=== PATIENT | female | born 1995 | race Asian ===

== ENCOUNTER 2024-02-11 09:30 | Inpatient (IN) ==
--- NOTE | 2024-02-11 10:15 | History & Physical Report ---
Date of Service February 11, 2024 Assessment & Plan (1) with 39 completed weeks gestation: (2) Vaginal bleeding: Plan Some evidence of bleeding but nothing active at present. Appears to be oligo on my bedside ultrasound. Do not see fluid with sse. Will get bpp and codi. efm a bit flat, but has had some spontanesous accels noted. Very rare contraction. If oligo, would plan iol. she notes oligo with induction with her last . Minimally plan to monitor for a couple of hours. Explained the situation to the patient and partner who express understanding. History of Present Illness Chief Complaint: bleeding Primary Care Provider: Lydia Mahajan MD Patient is a 28yowf with iup at 39 6/7 weeks who presents to labor and delivery with bleeding. she got up to the bathroom was feeling pressure and cramping and had a large gush of blood into the toilet. Hard to quantify but she notes it was alot. Having some intermittent cramping/contractions. NOtes minimal bleeding since. A small amount of dark rust colored blood on the pad when she arrived. she noted movement this am but decreased recently. and Delivery Plans covid vaccinated--3 doses IOL Post-dates 02/19 OB Labs: Blood Type O Positive 07/21/23 Antibody Screen NEGATIVE 07/21/23 Hemoglobin 10.3 g/dl (12.0-16.0) L 11/24/23 Hematocrit 30.2 % (37.0-47.0) L 11/24/23 Mean Corpuscular Volume 91.9 fL (80.0-100.0) 07/21/23 Platelet Count 378 K/uL (130-400) 07/21/23 Rubella IgG Antibody Immune (Immune) 07/21/23 Rapid Plasma Reagin Nonreactive (Nonreactive) 07/21/23 Hepatitis B Surface Antigen. NON-REACTIVE (NON-REACTIVE) 07/21/23 Hepatitis C Antibody (EIA) NON-REACTIVE (NON-REACTIVE) 07/21/23 HIV (1&2) Ag and Ab Confirmation NON-REACTIVE (NON-REACTIVE) 07/21/23 Glucose 1 Hour 50 gm Load 150 mg/dl (70-130) H 09/01/23 OB Optional Labs: Chlamydia trachomatis RNA Not Detected (NotDetected) 07/21/23 Neisseria gonorrhoeae RNA Not Detected (NotDetected) 07/21/23 Labs Reviewed: cfdna-low risk--mln gbs neg Allergies Allergy/AdvReac Type Severity Reaction Status Date / Time No Known Allergies Allergy Unverified 02/09/24 12:56 Home Medications Medication Instructions Recorded Confirmed Type vits no.124-ferrous fum 1 tab PO DAILY 02/11/24 02/11/24 History 27 mg iron-folic acid 800 mcg tablet ( Vitamin) Patient History Medical History Oligohydramnios Patient reports Oligo with last . History of chicken pox Seasonal allergies Surgical History No history of previous surgery Family History Father Diabetes Denies family history of Ovarian cancer Breast cancer Colorectal cancer Social History Smoking Status: Never smoker Do You Dip or Chew Tobacco: No; Hx Alcohol Use: No Hx Substance Use: No Preferred Language: Moldovan Communication Ability: Effective Hearing Screener Required: No Beliefs That Will Affect Care: None marital status: Single marital status details: Jennifer Zheng (30) [phone] Current Living Situation: Family and Significant Other Current Living Situation Comment: lives with F[address], children, no pets current occupational status: employed current occupation: [employer] Other Information That Helps Us Care for You: No Feels Safe at Home: Yes Safety Concerns: Feels Safe At This Time Assistive Devices: None OB History Past Pregnancies Del. Date GA wks Lbr Lgth wt Sex Type del Anes Place Del Prov ? Comment 10/06/17 41 10 6-15 F Epid ural Other [facility] IOL post dates 05/05/19 39 10 6-14 F Epid ural Other [facility] IOL oligohydramnios [facility] History noncontributory Physical Exam Constitutional: WD/WN, vitals as above Gastrointestinal (Abdomen): soft, gravid, nt Psychiatric: A+Ox3, euthymic affect Genitourinary: sse--small amount of dark blood in the vault, cx vis 1cm, no active bleeding noted sve--1/l/h toco--rare, occasional contractions efm--140s with min to mod variability, small accels, no decels bsus--cephalic, appears with minimal fluid noted. Results & Data Vital Signs (Past 12 Hours) Vital Signs Temp Pulse Resp BP 02/11/24 09:45 36.8 C 88 20 122/75 02/11/24 09:40 88 122/75 Coding Level of Care Code None Diagnoses with 39 completed weeks gestation Z3A.39 Vaginal bleeding N93.9
[2024-02-11] MEDS ORDERED: LIDOCAINE 1% LOCAL 20 ML VIAL INFIL PRN (11:44)
[2024-02-11] MEDS ORDERED: OXYTOCIN 30 UNITS/NSS 30 UNITS/500 ML BAG IV PRN (11:44)
--- NOTE | 2024-02-11 11:48 | Communication Note ---
Date of Service: February 11, 2024 Bpp is 4/8--gross movement and fluid (codi 4, dvp 2.9), no tone and only about 5 secs of bleeding. Given this recommend iol. Would plan slow induction with pitocin. Explained the situation to the patient and she agrees to proceed. Discussed the r/b/se.
[2024-02-11 12:11] LABS: Hematocrit (blood only) 29.6 % (37.0-47.0); Hemoglobin 9.9 g/dl (12.0-16.0); Mean Corpuscular Hemoglobin 26.4 pg (25.0-34.0); Mean Corpuscular Hgb Conc 33.4 g/dL (32.0-36.0); Mean Corpuscular Volume 78.9 fL (80.0-100.0); Mean Platelet Volume 9.3 fL (9.4-12.4); Platelet Count 351 K/uL (130-400); RDW Coefficient of Variation 15.1 % (11.5-14.5); RDW Standard Deviation 43.8 fL (36.4-46.3); Red Blood Count 3.75 M/uL (4.20-5.40); White Blood Count 11.59 K/ul (4.8-10.8)
--- NOTE | 2024-02-11 12:20 | Ultrasound Report ---
US OB BPP wo NST single HISTORY: 28 years-old Female term, bleeding, ? oligo acute vaginal bleeding with COMPARISON: 09/29/2023 TECHNIQUE: Biophysical profile sonographic images were obtained FINDINGS: Single living intrauterine gestation with heart rate of 139 bpm in cephalic positioning. JESSICA is 4 cm. Breathing was noted for a interval proximally 5 seconds. Hazardous Materials Waste Technician reports not on, flexion o r extension identified. Biophysical profile is overall recorded at 4-8. The tread booker reports that she made the steam drier tender hardware of these findings at the time of dictation. This study was also ma de as a call report. The imaged placenta appears unremarkable. IMPRESSION: 1. Single living intrauterine gestation. 2. Biophysical profile of 4/8. 3. JESSICA of 4.0 cm. ACT 112: Negative or not required by law. The above report was generated using voice recognition software. It may contain grammatical, syntax o r spelling errors. Electronically signed by: Colt Hernández M.D. 02/11/2024 12:18 PM
[2024-02-11] MEDS: LACTATED RINGER'S 1,000 ML IV PRN (12:24)
[2024-02-11] MEDS: OXYTOCIN 30 UNITS/NSS 30 UNITS/500 ML BAG IV PRN (12:25)
[2024-02-11] MEDS ORDERED: SODIUM CHLORIDE 0.9% 250 ML IV PRN (12:53)
--- NOTE | 2024-02-11 19:25 | Anesthesiology Consultation ---
Date of Service February 11, 2024 Assessment & Plan Chart Review Chart Review: Patient NOT seen in Pre Admission Testing and Acceptable Risk for Labor Epidural Consults Requested none ASA ASA2 Proposed Anesthesia Anesthesia Type: Labor Epidural Risk / Benefits Reviewed With: PT / POA / Parent / Guardian, Accepts Plan and Informed Consent Obtained History Height/Weight Height: 5 ft 4 in Weight: 70.307 kg Allergies Allergy/AdvReac Type Severity Reaction Status Date / Time No Known Allergies Allergy Unverified 02/09/24 12:56 Medications Home Medications Medication Instructions Recorded Confirmed Last Taken vits no.124-ferrous fum 1 tab PO DAILY 02/11/24 02/11/24 02/10/24 27 mg iron-folic acid 800 mcg tablet ( Vitamin) Active Medications Generic Name Dose Route Start Last Admin Trade Name Freq PRN Reason Stop Dose Admin Lactated Ringer's 1,000 mls @ 125 mls/hr 02/11/24 11:44 02/11/24 18:52 Lr IV 02/13/24 11:43 999 mls/hr .Q8H PRN Administration L&D Protocol Protocol Oxytocin 30 units in 500 mls @ 8 mls/hr 02/11/24 11:44 02/11/24 17:35 Pitocin 30 Units/Nss IV 02/13/24 11:43 0.48 units/hr .Q24H PRN 8 mls/hr Labor Induction/Augmentation Titration Protocol 0.48 UNITS/HR NPO Date Last Intake of Fluids: 02/11/24 Time Last Intake of Fluids: 18:00 Date Last Intake of Solids: 02/10/24 Time Last Intake of Solids: 20:00 Past Medical History Medical History Oligohydramnios Patient reports Oligo with last . History of chicken pox Seasonal allergies Exercise / Class Metabolic Activity II 4-5 Yardwork/Stairs/Walk up hill Past Family History Family History Father Diabetes Denies family history of Ovarian cancer Breast cancer Colorectal cancer Past Surgical History Surgical History No history of previous surgery Past Anesthesia History No Hx of Anesthesia Complications and No Family Hx of Anesthesia Complications History of PONV No Hx of PONV and No Hx of Motion Sickness Social History Smoking Status: Never smoker Do You Dip or Chew Tobacco: No Hx Alcohol Use: No Hx Substance Use: No Review of Systems ROS Unobtainable: All systems reviewed & are unremarkable except as noted in HPI & below Physical Exam Vital Signs Last Vital Signs Temp 36.9 C 02/11/24 19:03 Pulse 104 H 02/11/24 19:20 Resp 18 02/11/24 19:03 BP 124/70 02/11/24 19:03 Pulse Ox 98 02/11/24 19:20 ENMT Mouth: no TMJ abnormality Thyromental Distance: > or= 3.5 Finger Breadths Mallampati Class: II Neck normal visual inspection and trachea midline; neck extension not limited Respiratory normal respiratory effort Auscultation: lungs clear to auscultation bilaterally Cardiovascular Rate/Rhythm: regular rate and regular rhythm Heart Sounds: no murmur Musculoskeletal Spine: normal cervical ROM Extremities: full ROM of extremities Neurologic moves all extremities Psychiatric Orientation: alert and oriented x 3 Testing Laboratory Results 02/11/24 11:51 Blood Type O Positive 02/11/24 11:51 Antibody Screen NEGATIVE 02/11/24 11:51
[2024-02-11] MEDS: BUPIVACAINE 0.25% PF 30 ML VIAL ONE (19:44)
[2024-02-11] MEDS: SODIUM CHLORIDE 0.9% PF INJ 10 ML VIAL ONE (19:44)
[2024-02-11] MEDS: LIDOCAINE 2%/EPINEPHRINE 1:200,000 20 ML PF ONE (19:44)
[2024-02-11] MEDS: fentANYL 2 MCG/ML BUPIVacaine 0.125%-NSS 100ML BAG ONE (19:45)
[2024-02-11] MEDS ORDERED: ePHEDrine sulfate 50 MG/ML AMP IV PRN (19:55)
[2024-02-11] MEDS ORDERED: ROPIVACAINE 0.5% PF 5 MG/ML 20 ML VIAL EPI PRN (19:55)
[2024-02-11] MEDS ORDERED: LIDOCAINE 2% MPF LOCAL 5 ML VIAL EPI PRN (19:55)
[2024-02-11] MEDS ORDERED: fentANYL 2 MCG/ML BUPIVacaine 0.125%-NSS 100ML BAG EPI PRN (19:55)
[2024-02-11] MEDS ORDERED: BUPIVACAINE 0.25% PF 30 ML VIAL EPI STA (19:55)
[2024-02-11] MEDS ORDERED: NALOXONE HCL 1 MG in SODIUM CHLORIDE 0.9% 1,000 ML IV PRN (19:55)
[2024-02-11] MEDS ORDERED: SODIUM CHLORIDE 0.9% PF INJ 10 ML VIAL EPI PRN (19:55)
[2024-02-11] MEDS ORDERED: NALOXONE HCL 0.4 MG/1 ML VIAL/CARP IV PRN (19:55)
[2024-02-11] MEDS ORDERED: LIDOCAINE 2%/EPINEPHRINE 1:200,000 20 ML PF EPI STA (19:55)
[2024-02-11] MEDS ORDERED: NALBUPHINE HCL 5 MG in SYRINGE 0 ML IV PRN (19:55)
[2024-02-11] MEDS ORDERED: fentaNYL citrate PF 100 MCG/2 ML VIAL EPI STA (19:55)
[2024-02-11] MEDS ORDERED: fentaNYL citrate PF 100 MCG/2 ML VIAL EPI PRN (19:55)
[2024-02-11] MEDS ORDERED: SODIUM CHLORIDE 0.9% PF INJ 10 ML VIAL EPI STA (19:55)
[2024-02-11] MEDS ORDERED: diphenhydrAMINE 50 MG/ML VIAL IV PRN (19:55)
[2024-02-11] MEDS ORDERED: BUPIVACAINE 0.25% PF 30 ML VIAL EPI PRN (19:55)
--- NOTE | 2024-02-11 20:15 | Labor Progress Brief Note ---
Date of Service February 11, 2024 Subjective comfortable with epidural, felt a gush Assessment & Plan (1) with 39 completed weeks gestation: Plan making change, srom, clear. overall reassuring strip with occasional category two. anticipate . Admission and Anticipated Discharge Date Admission Date: February 11, 2024 Physical Exam Physical Exam: cx--75/-2 srom--clear, minimal blood noted toco--q2-4min, pit at 8 efm--130s wtih mod variability, accels present, rare min variability times, occasional small variable Results & Data Vital Signs (Past 12 Hours) Vital Signs Temp Pulse Resp BP Pulse Ox 02/11/24 20:10 101 H 96 02/11/24 20:09 105 H 115/60 02/11/24 20:06 108 H 109/58 L 02/11/24 20:05 111 H 96 02/11/24 20:03 114 H 18 108/56 L 02/11/24 20:00 96 02/11/24 20:00 110 H 02/11/24 20:00 110 H 110/57 L 02/11/24 19:57 108 H 18 113/56 L 02/11/24 19:55 111 H 96 02/11/24 19:51 109 H 18 99/62 L 02/11/24 19:50 114 H 96 02/11/24 19:48 112 H 18 93/63 L 02/11/24 19:45 18 02/11/24 19:45 18 02/11/24 19:45 96 02/11/24 19:45 109 H 02/11/24 19:45 111 H 112/57 L 02/11/24 19:42 100 H 137/82 02/11/24 19:40 98 02/11/24 19:40 100 H 02/11/24 19:40 104 H 92 02/11/24 19:35 111 H 97 02/11/24 19:32 125 H 92 02/11/24 19:30 122 H 97 02/11/24 19:25 111 H 97 02/11/24 19:20 104 H 98 02/11/24 19:15 108 H 96 02/11/24 19:10 98 H 97 02/11/24 19:05 109 H 98 02/11/24 19:03 36.9 C 104 H 18 124/70 02/11/24 18:11 106 H 111/58 L 02/11/24 17:32 96 H 111/62 02/11/24 16:52 102 H 116/62 02/11/24 16:07 104 H 20 106/59 L 02/11/24 14:54 37.0 C 99 H 20 104/57 L 02/11/24 13:19 92 H 123/58 L 02/11/24 12:27 96 H 18 113/64 02/11/24 11:14 114 H 18 133/80 02/11/24 09:45 36.8 C 88 20 122/75 02/11/24 09:40 88 122/75 Coding Level of Care Code None Diagnoses with 39 completed weeks gestation Z3A.39
[2024-02-11] MEDS: fentaNYL citrate PF 100 MCG/2 ML VIAL ONE (20:23)
[2024-02-11] MEDS: ePHEDrine sulfate 50 MG/ML AMP ONE (22:06)
--- NOTE | 2024-02-12 00:29 | Delivery Summary ---
Vaginal Delivery Summary Date of Service February 12, 2024 Vaginal Delivery Summary and 2nd Degree LAC Pre-operative Diagnosis: at 40 weeks vaginal bleeding oligohydramnios bpp 4/8 Post-operative Diagnosis: same Procedure: pitocin induction epidural srom manual extraction of the placenta second degree laceration and repair QBL: 157cc Anesthesia: epidural Procedure: The patient presented to labor and delivery after a large gush of blood. Not actively bleeding on admission. Bedside us suspicious for oligohydramnios. BPP 4/8. Decision made for induction which was started with pitocin. Progressed and got epidural at 4cm. she continued to progress to c/c/+1. The patient pushed for x3 to deliver a viable male infant in he position. The nose and mouth were bulb suctioned on the perineum and the rest of the was then delivered without difficulty. The baby was vigorous. The nose and mouth were again bulb suctioned and the infant was placed in the maternal abdomen for drying and attention. Cord was clamped and cut at one minute of life. Cord blood and segment obtained. Placenta delivered by manual extractions as it was not easily, intact with a three vessel cord. Cervix/sulci/rectum were intact. A second degree perineal laceration was repaired in the normal standard fashion. Hemostasis obtained with dilute pitocin and fundal massage. Apgars were 8/9. Mother and baby doing well at the end of the delivery. [facility] [place] Charge Delivery Type Details: and 2nd Degree LAC
[2024-02-12] MEDS ORDERED: bisacodyL 10 MG SUPP PR PRN (00:30)
[2024-02-12] MEDS ORDERED: OXYTOCIN 30 UNITS/NSS 30 UNITS/500 ML BAG IV PRN (00:30)
[2024-02-12] MEDS ORDERED: DIPHTHER/TETAN/PERTUS Vaccine (Tdap, Adol/Adult) 0.5mL IM ONE (00:30)
[2024-02-12] MEDS ORDERED: ACETAMINOPHEN 325 MG TAB PO PRN (00:30)
[2024-02-12] MEDS ORDERED: oxyCODONE/ACETAMINOPHEN 5mg/325mg TAB PO PRN (00:30)
[2024-02-12] MEDS ORDERED: HYDROCORTISONE ACETATE 25 MG SUPP PR PRN (00:30)
[2024-02-12] MEDS: ceFAZolin 1000MG 1,000 MG/7.5 ML SYR IV ONE (01:52)
[2024-02-12] MEDS: BENZOCAINE 20% SPRY 85 APPLN/85 GM CAN EXT PRN (02:27)
[2024-02-12 06:17] LABS: Hematocrit (blood only) 27.7 % (37.0-47.0); Hemoglobin 9.1 g/dl (12.0-16.0)
[2024-02-12] MEDS: IBUPROFEN 600 MG TAB PO PRN (06:27)
--- NOTE | 2024-02-12 07:18 | Obstetrical Progress Note ---
Date of Service <Henry Warren DO - Last Filed: 02/12/24 07:18> February 12, 2024 Assessment & Plan <Henry Warren DO - Last Filed: 02/12/24 07:18> (1) Encounter for assessment: Plan 28 y/o PPD#0 Eating well, voiding well, ambulating well Vitals reviewed, significant for mild tachycardia (HR max 111) but otherwise WNL Pain well controlled with Motrin Routine post care - OOB, ambulation, diet progression as tolerated Will have 6 week follow up with Dr. Kong <Valeria Kong MD, FACOG - Last Filed: 02/12/24 07:27> (1) Encounter for assessment: Subjective <Henry Warren DO - Last Filed: 02/12/24 07:18> Ambulation: ambulating normally Voiding: no voiding problems Passing Gas:: Yes Diet Tolerance:: regular diet Lochia:: Moderate Feeding Type:: bottle feeding Pain well controlled with Motrin Review of Systems -Denies fever or chills -Denies dyspnea, chest pain, or palpitations -Denies dysuria -Denies headache or changes in vision Physical Exam <Henry Warren DO - Last Filed: 02/12/24 07:18> General: Alert and oriented. No acute distress Cardiac: Regular rate and rhythm, no murmurs appreciated Respiratory: Lungs clear to auscultation bilaterally, No increased work of breathing Abdominal: Soft, non-tender, non-distended. Bowel sounds present. Uterus: Uterine fundus firm, palpable below umbilicus Extremities: No lower extremity edema, calves non-tender bilaterally Results & Data <Henry Warren DO - Last Filed: 02/12/24 07:18> Vital Signs (Past 12 Hours) Vital Signs Temp Pulse Pulse Resp BP BP Pulse Ox 02/12/24 03:32 36.7 C 102 H 20 123/78 96 02/12/24 02:24 16 02/12/24 02:24 105 H 125/63 02/12/24 02:09 111 H 122/58 L 02/12/24 01:54 16 02/12/24 01:54 98 H 120/62 02/12/24 01:39 103 H 122/72 02/12/24 01:24 16 02/12/24 01:24 111 H 126/75 02/12/24 01:09 16 02/12/24 01:09 107 H 116/59 L 02/12/24 00:59 102 H 129/56 L 02/12/24 00:56 18 02/12/24 00:40 18 02/12/24 00:40 104 H 117/72 02/12/24 00:24 115 H 18 146/68 H 02/12/24 00:20 109 H 96 02/12/24 00:15 109 H 97 02/12/24 00:13 121 H 135/63 02/12/24 00:12 122 H 235/138 H 02/12/24 00:10 124 H 97 02/12/24 00:09 122 H 93 02/12/24 00:05 132 H 96 02/12/24 00:02 157 H 92 02/12/24 00:00 139 H 97 02/11/24 23:55 124 H 98 02/11/24 23:50 103 H 97 02/11/24 23:45 116 H 96 02/11/24 23:42 18 02/11/24 23:42 118 H 18 127/75 02/11/24 23:40 121 H 97 02/11/24 23:35 115 H 97 02/11/24 23:30 105 H 97 02/11/24 23:26 106 H 113/65 02/11/24 23:25 100 H 96 02/11/24 23:20 104 H 97 02/11/24 23:15 117 H 97 02/11/24 23:11 115 H 118/65 02/11/24 23:10 114 H 96 02/11/24 23:05 112 H 96 02/11/24 23:00 107 H 96 02/11/24 22:57 110 H 117/63 02/11/24 22:55 109 H 96 02/11/24 22:50 106 H 96 02/11/24 22:45 103 H 95 02/11/24 22:43 109 H 94 02/11/24 22:41 105 H 120/66 02/11/24 22:40 98 H 96 02/11/24 22:35 108 H 95 02/11/24 22:30 112 H 96 02/11/24 22:28 114 H 92 02/11/24 22:26 111 H 117/69 02/11/24 22:25 114 H 96 02/11/24 22:20 103 H 96 02/11/24 22:15 104 H 96 02/11/24 22:12 104 H 120/71 02/11/24 22:10 101 H 97 02/11/24 22:07 18 02/11/24 22:07 36.9 C 18 02/11/24 22:05 111 H 95 02/11/24 22:00 107 H 95 02/11/24 21:56 104 H 115/64 02/11/24 21:55 105 H 95 02/11/24 21:50 107 H 97 02/11/24 21:45 107 H 96 02/11/24 21:42 109 H 118/63 02/11/24 21:40 107 H 95 02/11/24 21:35 114 H 97 02/11/24 21:30 109 H 96 02/11/24 21:27 110 H 117/70 02/11/24 21:25 109 H 97 02/11/24 21:20 114 H 96 02/11/24 21:15 114 H 96 02/11/24 21:11 109 H 103/58 L 02/11/24 21:10 109 H 95 02/11/24 21:05 112 H 97 02/11/24 21:00 36.9 C 117 H 18 95 02/11/24 20:56 115 H 100/55 L 02/11/24 20:55 110 H 96 02/11/24 20:50 114 H 96 02/11/24 20:45 114 H 96 02/11/24 20:41 108 H 16 106/65 02/11/24 20:40 103 H 96 02/11/24 20:35 107 H 96 02/11/24 20:30 112 H 97 02/11/24 20:26 115 H 108/67 02/11/24 20:25 110 H 96 02/11/24 20:20 109 H 97 02/11/24 20:15 106 H 97 02/11/24 20:11 103 H 110/67 02/11/24 20:10 101 H 96 02/11/24 20:09 105 H 115/60 02/11/24 20:06 108 H 109/58 L 02/11/24 20:05 111 H 96 02/11/24 20:03 114 H 18 108/56 L 02/11/24 20:00 96 02/11/24 20:00 110 H 02/11/24 20:00 110 H 110/57 L 02/11/24 19:57 108 H 18 113/56 L 02/11/24 19:55 111 H 96 02/11/24 19:51 109 H 18 99/62 L 02/11/24 19:50 114 H 96 02/11/24 19:48 112 H 18 93/63 L 02/11/24 19:45 18 02/11/24 19:45 18 02/11/24 19:45 96 02/11/24 19:45 109 H 02/11/24 19:45 111 H 112/57 L 02/11/24 19:42 100 H 137/82 02/11/24 19:40 98 02/11/24 19:40 100 H 02/11/24 19:40 104 H 92 02/11/24 19:35 111 H 97 02/11/24 19:32 125 H 92 02/11/24 19:30 122 H 97 02/11/24 19:25 111 H 97 02/11/24 19:20 104 H 98 02/11/24 19:15 108 H 96 O2 Del Method 02/12/24 03:32 Room Air 02/12/24 02:24 02/12/24 02:24 02/12/24 02:09 02/12/24 01:54 02/12/24 01:54 02/12/24 01:39 02/12/24 01:24 02/12/24 01:24 02/12/24 01:09 02/12/24 01:09 02/12/24 00:59 02/12/24 00:56 02/12/24 00:40 02/12/24 00:40 02/12/24 00:24 02/12/24 00:20 02/12/24 00:15 02/12/24 00:13 02/12/24 00:12 02/12/24 00:10 02/12/24 00:09 02/12/24 00:05 02/12/24 00:02 02/12/24 00:00 02/11/24 23:55 02/11/24 23:50 02/11/24 23:45 02/11/24 23:42 02/11/24 23:42 02/11/24 23:40 02/11/24 23:35 02/11/24 23:30 02/11/24 23:26 02/11/24 23:25 02/11/24 23:20 02/11/24 23:15 02/11/24 23:11 02/11/24 23:10 02/11/24 23:05 02/11/24 23:00 02/11/24 22:57 02/11/24 22:55 02/11/24 22:50 02/11/24 22:45 02/11/24 22:43 02/11/24 22:41 02/11/24 22:40 02/11/24 22:35 02/11/24 22:30 02/11/24 22:28 02/11/24 22:26 02/11/24 22:25 02/11/24 22:20 02/11/24 22:15 02/11/24 22:12 02/11/24 22:10 02/11/24 22:07 02/11/24 22:07 02/11/24 22:05 02/11/24 22:00 02/11/24 21:56 02/11/24 21:55 02/11/24 21:50 02/11/24 21:45 02/11/24 21:42 02/11/24 21:40 02/11/24 21:35 02/11/24 21:30 02/11/24 21:27 02/11/24 21:25 02/11/24 21:20 02/11/24 21:15 02/11/24 21:11 02/11/24 21:10 02/11/24 21:05 02/11/24 21:00 02/11/24 20:56 02/11/24 20:55 02/11/24 20:50 02/11/24 20:45 02/11/24 20:41 02/11/24 20:40 02/11/24 20:35 02/11/24 20:30 02/11/24 20:26 02/11/24 20:25 02/11/24 20:20 02/11/24 20:15 02/11/24 20:11 02/11/24 20:10 02/11/24 20:09 02/11/24 20:06 02/11/24 20:05 02/11/24 20:03 02/11/24 20:00 02/11/24 20:00 02/11/24 20:00 02/11/24 19:57 02/11/24 19:55 02/11/24 19:51 02/11/24 19:50 02/11/24 19:48 02/11/24 19:45 02/11/24 19:45 02/11/24 19:45 02/11/24 19:45 02/11/24 19:45 02/11/24 19:42 02/11/24 19:40 02/11/24 19:40 02/11/24 19:40 02/11/24 19:35 02/11/24 19:32 02/11/24 19:30 02/11/24 19:25 02/11/24 19:20 02/11/24 19:15 Supervising Physician <Valeria Kong MD, FACOG - Last Filed: 02/12/24 07:27> Co-Signing Physician Notes Resident Physician Supervision Note: I was present with Dr. Warren during the history and exam. I discussed the case with the resident and agree with the findings and plan as documented in the note. Any exceptions or clarifications are listed here: Doing well. Routine care. Documented By: Valeria Kong MD, FACOG Resident Activity Tracking <Henry Warren DO - Last Filed: 02/12/24 07:18> Resident Involvement: Resident Care Provided Care Provided: OB Delivery
--- NOTE | 2024-02-12 08:16 | Anesthesia Procedure Note ---
Date of Service February 12, 2024 Anesthesia Post Epidural Note Vital Signs Vital Signs: Temp Pulse Resp BP Pulse Ox O2 Del Method 36.7 C 102 H 20 123/78 96 Room Air 02/12/24 03:32 02/12/24 03:32 02/12/24 03:32 02/12/24 03:32 02/12/24 03:32 02/12/24 03:32 Notes Mental Status: alert / awake / arousable and participated in evaluation Nausea / Vomiting: adequately controlled Pain: adequately controlled Airway Patency, RR, SpO2: stable & adequate BP & HR: stable & adequate Hydration State: stable & adequate Neuraxial Anesthesia: was administered and sensory block is resolving Anesthetic Complications: no major complications apparent Epidural: Removed without complications and With tip intact
[2024-02-12] MEDS: DOCUSATE SODIUM 100 MG CAP PO SCH (08:46)
[2024-02-12] MEDS: PRENATAL VITAMIN 1 TAB PO SCH (08:46)
--- NOTE | 2024-02-13 06:11 | Obstetrical Progress Note ---
Date of Service <Henry WarrenDO - Last Filed: 02/13/24 06:11> February 13, 2024 Assessment & Plan <Henry Warren - Last Filed: 02/13/24 06:11> (1) Encounter for assessment: Plan 28 y/o PPD#1 Eating well, voiding well, ambulating well Vitals reviewed, WNL Pain well controlled with Motrin Routine post care - OOB, ambulation, diet progression as tolerated Will have 6 week follow up with Dr. Kong <Radha Dawkins MD - Last Filed: 02/13/24 06:55> (1) Encounter for assessment: Subjective <Henry WarrenDO dong - Last Filed: 02/13/24 06:11> Ambulation: ambulating normally Voiding: no voiding problems Passing Gas:: Yes Diet Tolerance:: regular diet Lochia:: Small Feeding Type:: bottle feeding Pain well controlled with Motrin Review of Systems -Denies fever or chills -Denies dyspnea, chest pain, or palpitations -Denies dysuria -Denies headache or changes in vision Physical Exam <Henry WarrenDO dong - Last Filed: 02/13/24 06:11> General: Alert and oriented. No acute distress Cardiac: Regular rate and rhythm, no murmurs appreciated Respiratory: Lungs clear to auscultation bilaterally, No increased work of breathing Abdominal: Soft, non-tender, non-distended. Bowel sounds present. Uterus: Uterine fundus firm, palpable below umbilicus Extremities: No lower extremity edema, calves non-tender bilaterally Results & Data <Henryvicki Warren DO - Last Filed: 02/13/24 06:11> Vital Signs (Past 12 Hours) Vital Signs Temp Pulse Resp BP Pulse Ox O2 Del Method 02/13/24 00:27 36.9 C 86 20 126/81 98 Room Air 02/12/24 19:33 37.2 C 102 H 18 112/78 97 Room Air Supervising Physician <Radha Dawkins MD - Last Filed: 02/13/24 06:55> Co-Signing Physician Notes Resident Physician Supervision Note: I interviewed and examined the patient. Discussed with Dr. Warren and agree with findings and plan as documented in the note. Any exceptions or clarifications are listed here: [ ] Documented By: Radha Dawkins MD, FACOG Resident Activity Tracking <Henry Warren, DO - Last Filed: 02/13/24 06:11> Resident Involvement: Resident Care Provided Care Provided: OB Delivery
[2024-02-13] MEDS ORDERED: bisacodyL 5 MG TABEC PO SCH (20:00)
== END 2024-02-13 10:50 | disposition home or self-care (01) | DRG 806 ==
LOC: OPB 09:30 → 4S1 09:32 → 4E2 02-12 02:58